=== PATIENT | male | born 1990 | race Hispanic/Latino ===

== ENCOUNTER 2024-05-29 19:44 | Emergency (ER) | payer BC ==
[2024-05-29] MEDS ORDERED: KETOROLAC 30 MG/ML INJ ONE (20:35)
[2024-05-29] MEDS ORDERED: ONDANSETRON 4 MG/2 ML VIAL ONE (20:35)
[2024-05-29] MEDS ORDERED: NA CHLORIDE 0.9% 1,000 ML ONE (20:35)
[2024-05-29 20:41] LABS: Specific Gravity 1.028 (1.005-1.030); Sqamous Epithelial None Seen /HPF (None Seen); Urine Bacteria None Seen /HPF (<20); Urine Bilirubin NEGATIVE (Negative); Urine Blood 3+ (OVER) (Negative); Urine Clarity Extremely Turbid (Clear); Urine Color Yellow (Yellow); Urine Crystals Unidentified Few /HPF (None Seen); Urine Culture Reflex Order NOT NEEDED; Urine Glucose NEGATIVE (Negative); Urine Ketones NEGATIVE (Negative); Urine Microscopic Reflex YN ORDER UMIC; Urine Mucus 3+ /HPF (None Seen); Urine Nitrite NEGATIVE (Negative); Urine Protein TRACE (Negative); Urine RBC >50 /HPF (None Seen); Urine Urobilinogen Normal (Normal); Urine WBC <5 /HPF (<5); Urine WBC Clump Rare /HPF (None Seen); Urine Yeast (Budding) Trace /HPF (None Seen); Urine pH 5.5 (5.0-7.0)
[2024-05-29 20:42] LABS: Absolute Eosinophils 0.1 K/uL (0-0.5); Absolute Monocytes 0.9 K/uL (0.1-1.3); Absolute Neutrophil 8.4 K/uL (1.8-8.0); Basophils % 0.4 % (0-1.3); Eosinophils % 0.8 % (0-4.4); Hematocrit 47.3 % (39.6-49.0); Hemoglobin 15.7 g/dL (13.6-17.9); Lymphocytes % 24.4 % (15.3-44.8); MCH 32.6 pg (27.0-35.0); MCHC 33.3 g/dL (32.0-36.0); MCV 97.9 fL (80-100); MPV 8.8 fL (7.6-11.3); Monocytes % 7.3 % (3.3-12.3); Neutrophils % 67.1 % (41.7-73.7); Nucleated Red Blood Cells % 0.1 % (0-0); Platelets 180 thou/uL (152-406); RBC Red Blood Cell Count 4.83 M/uL (4.33-5.43); Red Cell Distribution Width 12.6 % (12.1-15.2)
--- NOTE | 2024-05-29 20:44 | RAD REPORT ---
EXAMINATION: CT ABDOMEN AND PELVIS WITHOUT CONTRAST CLINICAL INDICATION: FLANK PAIN TECHNIQUE: CT abdomen and pelvis was performed, without IV contrast, as per department protocol. Axia l, sagittal and coronal reconstructions were obtained. One or more of the following dose reduction techniques were used: Automated exposure control, adjustment of the mA and kV according to the patien t size, and iterative reconstruction. Unless otherwise specified, incidental findings do not require dedicated imaging follow-up. COMPARISON: No prior exam. FINDINGS: The lack of intravenous contrast limits the sensitivity of this exam for evaluation of solid visceral organs, vascular structures, and retroperitoneum. LOWER CHEST: The visualized lung bases are clear. LIVER:Normal in size and contour. No focal lesion. Grossly unremarkable gallbladder. SPLEEN: Normal size. No focal lesion. PANCREAS: No mass, ductal dilation, or vania-pancreatic fluid. ADRENALS: Normal; no mass. KIDNEYS AND URETERS: 4 mm stone is present proximal right ureter resulting in mild right hydronephros is. URINARY BLADDER: Normal contour. GASTROINTESTINAL TRACT: No evidence of bowel obstruction, significant free fluid, free air or abscess . APPENDIX: Normal appendix. LYMPH NODES: No lymphadenopathy. MUSCULOSKELETAL: No acute or suspicious osseous abnormality. ADDITIONAL FINDINGS: None. IMPRESSION: 4 mm stone is present proximal right ureter resulting in mild right hydronephrosis.
[2024-05-29 20:56] LABS: Albumin 3.9 g/dL (3.4-5.0); Albumin/Globulin Ratio 0.9 (1.1-1.8); Anion Gap 8.9 mEq/L (5.0-15.0); Globulin 4.4 g/dL (2.3-3.5); Potassium 3.9 mEq/L (3.5-5.1); Protein, Total 8.3 g/dL (6.4-8.2)
--- NOTE | 2024-05-29 21:42 | ER ---
Nurse's Notes [facility] Name: Nas Durán Age: 33 yrs Sex: Male : 1990 Arrival Date: 05/29/2024 Time: 19:44 Bed 23 Private MD: Diagnosis: Calculus of ureter Presentation: 05/29 19:47 Chief complaint: Patient states: right lower back pain beginning last night but went lg3 away. 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 Coronavirus screen: Client denies travel out of the [place] in the last 14 days. At this time, the client does not indicate any symptoms associated with coronavirus-19. Ebola Screen: No symptoms or risks identified at this time. Initial Sepsis Screen: Does the patient meet any 2 criteria? No. Patient's initial sepsis screen is negative. Does the patient have a suspected source of infection? No. Patient's initial sepsis screen is negative. Risk Assessment: Do you want to hurt yourself or someone else? Patient reports no desire to harm self or others. Onset of symptoms was April 28, 2024. 19:47 Method Of Arrival: Ambulatory 3 19:47 Acuity: DAO 3 lg3 Triage Assessment: 19:51 General: Appears in no apparent distress. uncomfortable, Behavior is calm, cooperative. lg3 Pain: Complains of pain in right mid back and right low back Pain currently is 8 out of 10 on a pain scale. EENT: No deficits noted. No signs and/or symptoms were reported regarding the EENT system. Neuro: No deficits noted. Caicedo Agitation-Sedation Scale (RASS): 0 - Alert and Calm Level of Consciousness is awake, alert, obeys commands, Oriented to person, place, time, situation. Cardiovascular: No deficits noted. Denies chest pain, shortness of breath, Capillary refill < 3 seconds Clubbing of nail beds is absent JVD is absent Patient's skin is warm and dry. Respiratory: No deficits noted. Airway is patent Respiratory effort is even, unlabored, Respiratory pattern is regular, symmetrical. GI: No deficits noted. Abdomen is round non-distended, obese. : No signs and/or symptoms were reported regarding the genitourinary system. Derm: No deficits noted. No signs and/or symptoms reported regarding the dermatologic system. Skin is intact, is healthy with good turgor, Skin is dry, Skin is normal, Skin temperature is warm. Musculoskeletal: Circulation, motion, and sensation intact. Range of motion: intact in all extremities, Reports pain in right mid back and right low back. Historical: - Allergies: 19:51 No Known Allergies; lg3 - Home Meds: 19:51 metformin 500 mg Oral Tablet, Extended Release 24 hr 2 times per day [Active]; lg3 phentermine oral [Active]; Januvia oral daily [Active]; - PMHx: 19:51 Diabetes mellitus; lg3 - PSHx: 19:51 None; lg3 - Immunization history:: Adult Immunizations up to date. - Infectious Disease History:: Denies. - Social history:: Smoking status: Patient denies any tobacco usage or history of. Patient uses alcohol, occasionally. Patient/guardian denies using street drugs. Screenin:59 [facility] ED Fall Risk Assessment (Adult) History of falling in the last 3 months, me1 including since admission No falls in past 3 months (0 pts) Confusion or Disorientation No (0 pts) Intoxicated or Sedated No (0 pts) Impaired Gait No (0 pts) Mobility Assist Device Used No (0 pt) Altered Elimination No (0 pt) Score/Fall Risk Level 0 - 2 = Low Risk Maintained a safe environment, Provided non-skid footwear, Hourly rounding (assess needs \T\ fall precautionary measures) done. Abuse screen: Denies threats or abuse. Nutritional screening: No deficits noted. Tuberculosis screening: No symptoms or risk factors identified. Assessment: 19:59 General: Appears uncomfortable, well groomed, well developed, well nourished, Behavior me1 is calm, cooperative, appropriate for age, Reports right lower back pain beginning last night but went away. 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 Pain: Complains of pain in right low back and right mid back Pain does not radiate. Pain currently is 8 out of 10 on a pain scale. Quality of pain is described as sharp, Pain began suddenly, Is continuous. Neuro: Level of Consciousness is awake, alert, obeys commands, Oriented to person, place, time, situation, Appropriate for age. Cardiovascular: Patient's skin is warm and dry. Respiratory: Airway is patent Respiratory effort is even, unlabored, Respiratory pattern is regular, symmetrical. GI: No signs and/or symptoms were reported involving the gastrointestinal system. : Reports pain in right flank(s), in lower back. EENT: No signs and/or symptoms were reported regarding the EENT system. Derm: Skin is intact, is healthy with good turgor, Skin is pink, warm \T\ dry. Musculoskeletal: No signs and/or symptoms reported regarding the musculoskeletal system. Vital Signs: 19:47 BP 129 / 71; Pulse 91; Resp 18 S; Temp 97.9(O); Pulse Ox 100% on R/A; Weight 127.01 kg lg3 (R); Height 5 ft. 9 in. ; Pain 9/10; 20:00 BP 122 / 75; Pulse 78; Resp 16; Pulse Ox 96% ; me1 21:00 BP 119 / 64; Pulse 92; Resp 17; Pulse Ox 95% ; me1 21:30 BP 113 / 66; Pulse 96; Resp 16; Temp 98.4; Pulse Ox 96% ; me1 19:47 Body Mass Index 41.35 (127.01 kg, 175.26 cm) lg3 19:47 Pain Scale: Adult lg3 ED Course: 19:46 Patient arrived in ED. mr 19:47 Kyle Dugganistin, [facility] kb 19:47 Jeffrey Dean MD is Attending Physician. kb 19:51 Triage completed. lg3 19:51 Arm band placed on left wrist. lg3 19:59 Jes Bella, TANVIR is Primary Nurse. me1 19:59 Patient has correct armband on for positive identification. Bed in low position. Call [facility] light in reach. Side rails up X2. Provided Education on: POC. Verbalized understanding. . Client placed on continuous cardiac and pulse oximetry monitoring. NIBP monitoring applied. Pulse ox on. NIBP on. 19:59 No provider procedures requiring assistance completed. me1 20:32 Inserted saline lock: 22 gauge in right antecubital area, using aseptic technique. ty Blood collected. Flushed with 10 mL NS. 20:33 CBC with Diff Sent. me1 20:33 CMP Sent. me1 20:33 Lipase Sent. me1 20:33 Urinalysis w/ reflexes Sent. me1 20:42 CT Stone Protocol In Process Unspecified. EDMS 21:53 IV discontinued, intact, bleeding controlled, No redness/swelling at site. Pressure me1 dressing applied. Administered Medications: 20:58 Drug: TORadol - Ketorolac IVP 15 mg IVP once Route: IVP; Site: right antecubital; me1 21:51 Follow up: Response: No adverse reaction; Pain is decreased me1 20:58 Drug: Ondansetron IVP 4 mg IVP once; over 2 minutes Route: IVP; Site: right antecubital;me1 21:51 Follow up: Response: No adverse reaction; Nausea is decreased me1 20:58 Drug: NS 0.9% IV 1000 ml IV at 1 bolus Per protocol; to be given as a bolus over 60 me1 minutes Route: IV; Rate: 1 bolus; Site: right antecubital; 21:51 Follow up: Response: No adverse reaction; IV Status: Completed infusion; IV Intake: me1 1000ml 21:48 Drug: Flomax PO 0.4 mg PO once Route: PO; me1 21:50 Follow up: Response: No adverse reaction me1 Medication: 21:53 VIS not applicable for this client. me1 Intake: 21:51 IV: 1000ml; Total: 1000ml. me1 Outcome: 21:42 Discharge ordered by . kb 21:53 Discharged to home ambulatory, me1 21:53 Condition: stable 21:53 Discharge instructions given to patient, Instructed on discharge instructions, follow up and referral plans. medication usage, Demonstrated understanding of instructions, follow-up care, medications, Prescriptions given X 3, 21:53 Patient left the ED. me1 Signatures: Dispatcher [employer] EDMN Chen Duggan, GIRLS TENNIS COACH-C GIRLS TENNIS COACH-Mounika Askew, Felipa Galindo, RN RN lg3 Jse Bella RN RN me1 [place] [place] [employer]: (The following items were deleted from the chart) 19:59 19:47 Chief complaint: Patient states: right lower back pain beginning last night but me1 went away. 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
--- NOTE | 2024-05-29 21:42 | EDPHYS ---
Physician Documentation [facility] Name: Nas Durán Age: 33 yrs Sex: Male : 1990 Arrival Date: 05/29/2024 Time: 19:44 Bed 23 Private MD: ED Physician Jeffrey Dean HPI: 05/29 21:51 This 33 yrs old Male presents to ER via Ambulatory with complaints of Back kb Pain. 21:51 Patient is a 33-year-old male who presents for right flank pain that started last kb night. States the pain only lasted for short time last night and went away and came back a few minutes prior to arrival. Reports pain is sharp stabbing pain. Reports history of kidney stones and this feels similar to previous. Denies urinary symptoms, fever, nausea, vomiting.. Historical: - Allergies: 19:51 No Known Allergies; lg3 - Home Meds: 19:51 metformin 500 mg Oral Tablet, Extended Release 24 hr 2 times per day [Active]; lg3 phentermine oral [Active]; Januvia oral daily [Active]; - PMHx: 19:51 Diabetes mellitus; lg3 - PSHx: 19:51 None; lg3 - Immunization history:: Adult Immunizations up to date. - Infectious Disease History:: Denies. - Social history:: Smoking status: Patient denies any tobacco usage or history of. Patient uses alcohol, occasionally. Patient/guardian denies using street drugs. ROS: 21:50 Constitutional: As per HPI kb Exam: 21:50 Constitutional: This is a well developed, well nourished patient who is awake, alert, kb and in no acute distress. Head/Face: Normocephalic, atraumatic. ENT: Moist Mucous membranes Cardiovascular: Regular rate Respiratory: Respirations even and unlabored. No increased work of breathing. Talking in full sentences Abdomen/GI: Soft, non-tender. No distention Skin: Warm, dry with normal turgor. Normal color. MS/ Extremity: Pulses equal, no cyanosis. Neurovascular intact. Full, normal range of motion. Neuro: Awake and alert, GCS 15, oriented to person, place, time, and situation. 21:50 Back: CVA tenderness, that is mild, is noted on the right, Vital Signs: 19:47 BP 129 / 71; Pulse 91; Resp 18 S; Temp 97.9(O); Pulse Ox 100% on R/A; Weight 127.01 kg lg3 (R); Height 5 ft. 9 in. ; Pain 9/10; 20:00 BP 122 / 75; Pulse 78; Resp 16; Pulse Ox 96% ; me1 21:00 BP 119 / 64; Pulse 92; Resp 17; Pulse Ox 95% ; me1 21:30 BP 113 / 66; Pulse 96; Resp 16; Temp 98.4; Pulse Ox 96% ; me1 19:47 Body Mass Index 41.35 (127.01 kg, 175.26 cm) lg3 19:47 Pain Scale: Adult lg3 MDM: 19:47 Medical Screening Exam initiated kb 21:51 Differential diagnosis: Pyelonephritis Ureterolithiasis UTI. Data reviewed: vital kb signs, nurses notes. Counseling: I had a detailed discussion with the patient and/or guardian regarding the historical points, exam findings, and any diagnostic results supporting the discharge/admit diagnosis, lab results, radiology results, the need for outpatient follow up, a family practitioner, to return to the emergency department if symptoms worsen or persist or if there are any questions or concerns that arise at home. Response to treatment: the patient's symptoms have resolved after treatment. 05/29 20:00 Order name: CBC with Diff; Complete Time: 20:58 kb 05/29 20:00 Order name: CMP; Complete Time: 20:57 kb 05/29 20:00 Order name: Lipase; Complete Time: 20:57 kb 05/29 20:00 Order name: Urinalysis w/ reflexes; Complete Time: 20:51 kb 05/29 20:00 Order name: CT Stone Protocol; Complete Time: 20:51 kb 05/29 20:00 Order name: IV Saline Lock; Complete Time: 20:33 kb 05/29 20:00 Order name: Labs collected and sent; Complete Time: 20:33 kb Administered Medications: 20:58 Drug: TORadol - Ketorolac IVP 15 mg IVP once Route: IVP; Site: right antecubital; me1 21:51 Follow up: Response: No adverse reaction; Pain is decreased me1 20:58 Drug: Ondansetron IVP 4 mg IVP once; over 2 minutes Route: IVP; Site: right antecubital;me1 21:51 Follow up: Response: No adverse reaction; Nausea is decreased me1 20:58 Drug: NS 0.9% IV 1000 ml IV at 1 bolus Per protocol; to be given as a bolus over 60 me1 minutes Route: IV; Rate: 1 bolus; Site: right antecubital; 21:51 Follow up: Response: No adverse reaction; IV Status: Completed infusion; IV Intake: me1 1000ml 21:48 Drug: Flomax PO 0.4 mg PO once Route: PO; me1 21:50 Follow up: Response: No adverse reaction me1 Disposition Summary: 05/29/24 21:42 Discharge Ordered Notes: Location: Home kb Condition: Stable kb Diagnosis - Calculus of ureter kb Followup: kb - With: Emergency Department - When: As needed - Reason: Worsening of condition Followup: kb - With: Private Physician - When: 2 - 3 days - Reason: Recheck today's complaints, Continuance of care, Re-evaluation by your physician Discharge Instructions: - Discharge Summary Sheet kb - Kidney Stones, [id number] kb - Dietary Guidelines to Help Prevent Kidney Stones kb Forms: - Medication Reconciliation Form kb - Antibiotic Education kb - Prescription Opioid Use kb - Patient Portal Instructions kb - Leadership Thank You Letter kb Prescriptions: - Flomax 0.4 mg Oral capsule - take 1 capsule ORAL route daily; 10 capsule; Refills: 0, Product Selection kb Permitted - Zofran 4 mg Oral tablet - take 1 tablet ORAL route every 6 hours As needed; 12 tablet; Refills: 0, kb Product Selection Permitted - Diclofenac Sodium 75 mg Oral tablet, delayed release (enteric coated) - take 1 tablet ORAL route 2 times per day As needed; 30 tablet; Refills: 0, kb Product Selection Permitted Signatures: Dispatcher [employer] EDNE Chen Duggan, TIE LAYER-C GORDON-Felipa Tong RN RN lg3 Jes Bella, TANVIR RN me1 Corrections: (The following items were deleted from the chart) 20:01 20:01 CBC+H.LAB.BRZ ordered. EDMS EDMS 20:01 20:01 COMPREHENSIVE METABOLIC PANEL+C.LAB.BRZ ordered. EDMS EDMS 20:01 20:01 LIPASE+C.LAB.BRZ ordered. EDMS EDMS 20:01 20:01 Urinalysis+U.LAB.BRZ ordered. EDMS EDMS
[2024-05-29] MEDS ORDERED: TAMSULOSIN 0.4 MG SR CAP ONE (21:46)
[2024-05-30 04:09] VITALS: BP 113/66; TEMP 98.4; O2SAT 96
== END 2024-05-29 21:53 | disposition home or self-care (01) ==
LOC: ER 19:44
DX: N20.1 Calculus of ureter (principal); Z87.442 Personal history of urinary calculi; E11.9 Type 2 diabetes mellitus without complications
CPT/HCPCS: 96361; 85025; 81001; 36415; 83690; 80053; 76377; 74176; 96375; 96374; 99284; J2405; J7030